=== PATIENT | male | born 1945 | race Caucasian/White ===

== ENCOUNTER 2022-02-05 10:06 | Emergency (ER) | payer MEDICARE, OTHER ==
[2022-02-05] MEDS ORDERED: LORazepam 2 MG/ML SDV IVPUSH ONE (13:44)
[2022-02-05] MEDS ORDERED: Ondansetron 4 MG/2 ML SDV IVPUSH ONE (13:44)
[2022-02-05] MEDS ORDERED: Morphine 2 MG/ML SYRINGE IVPUSH ONE (13:44)
[2022-02-05 14:34] LABS: ANION GAP 9.2 meq/L (7-15)
== END 2022-02-05 17:40 ==
LOC: LL.ED 10:06
DX: S72.001A Fracture of unspecified part of neck of right femur, initial encounter for closed fracture (principal); Z88.8 Allergy status to other drugs, medicaments and biological substances
CPT/HCPCS: 36415; 73700-RT; 80053; 83735; 85025; 96374; 96375; 99283; 99285-25; J2060; J2270; J2405

== ENCOUNTER 2024-02-10 09:08 | Emergency (ER) | payer MEDICARE, OTHER ==
[2024-02-10] MEDS: cefTRIAXone 1 GM in Sodium Chloride 0.9% 100 ML IV ONE (09:38)
[2024-02-10] MEDS: Sodium Chloride 0.9% 1,000 ML IV ONE (09:38)
[2024-02-10 09:54] LABS: BASOPHILS ABSOLUTE AUTO 0.02 K/uL (0.00-0.20); BASOPHILS PERCENT AUTO 0.1 % (0.0-2.0); EOSINOPHILS ABSOLUTE AUTO 0.01 K/uL (0.00-0.50); EOSINOPHILS PERCENT AUTO 0.1 % (0.0-5.0); HEMATOCRIT 48.4 % (39.0-49.0); HEMOGLOBIN 16.7 g/dL (13.1-16.8); LYMPHOCYTES ABSOLUTE AUTO 1.74 K/uL (0.50-3.50); LYMPHOCYTES PERCENT AUTO 12.9 % (10.0-50.0); MEAN CORPUSCULAR HEMOGLOBIN 31.3 pg (28.2-33.3); MEAN CORPUSCULAR HGB CONC 34.5 g/dL (31.7-36.0); MEAN CORPUSCULAR VOLUME 90.6 fL (84.0-98.0); MONOCYTES ABSOLUTE AUTO 1.53 K/uL (0.00-1.00); MONOCYTES PERCENT AUTO 11.3 % (2.0-14.0); NEUTROPHILS ABSOLUTE AUTO 10.22 K/uL (1.40-7.00); NEUTROPHILS PERCENT AUTO 75.6 % (45.0-80.0); PLATELET COUNT,PLT 181 K/uL (150-350); RED BLOOD CELL COUNT 5.34 M/uL (4.33-5.41); RED CELL DISTRIBUTION WIDTH 14.8 % (11.2-14.1); WHITE BLOOD CELL COUNT,WBC 13.5 K/uL (4.0-10.2)
[2024-02-10 10:17] LABS: ALBUMIN 3.9 g/dL (3.4-5.0); ANION GAP 12.6 meq/L (7-15); BILIRUBIN TOTAL 2.7 mg/dL (0.2-1.0); CALCIUM 9.6 mg/dL (8.5-10.1); CARBON DIOXIDE,CO2 24.4 mmol/L (21.0-32.0); CREATININE 1.36 mg/dL (0.51-1.17); EST CRCL DRUG DOSING (CG) 39.09 mL/min; MAGNESIUM 2.2 mg/dL (1.8-2.4); PROTEIN TOTAL,TP 8.2 g/dL (6.4-8.2)
[2024-02-10 10:18] LABS: APPEARANCE,URINE SLIGHTLY CLOUDY; BILIRUBIN,URINE MODERATE (NEGATIVE); COLOR,URINE DARK YELLOW; GLUCOSE,URINE NEGATIVE (NEGATIVE); KETONES,URINE 15 mg/dL (NEGATIVE); LEUKOCYTE ESTERASE,URINE NEGATIVE (NEGATIVE); NITRITE,URINE NEGATIVE (NEGATIVE); OCCULT BLOOD,URINE NEGATIVE (NEGATIVE); PROTEIN,URINE 30 mg/dL (NEGATIVE); UROBILINOGEN,URINE >=8.0 E.U./dL (0.2-1.0)
[2024-02-10] MEDS: Lidocaine 2% HCl 11 ML Jelly Filled Syringe TOP ONE (10:22)
[2024-02-10] MEDS: Lidocaine 2% HCl 11 ML Jelly Filled Syringe ONE (10:22)
[2024-02-10 10:38] LABS: BACTERIA,URINE FEW /HPF (NONE TO FEW); EPITHELIAL CELLS,URINE FEW /LPF; RBC,URINE 0-5 /HPF
[2024-02-10 10:39] LABS: MUCUS,URINE MODERATE /LPF (NEGATIVE)
[2024-02-10] MEDS: Iopamidol 612 MG/ML 100 ML Bottle IVPUSH STA (11:25)
[2024-02-10] MEDS: Sodium Chloride 0.9% 1,000 ML IV SCH (11:55)
[2024-02-10] MEDS: Losartan 25 MG Tab PO ONE (14:21)
[2024-02-10] MEDS: Labetalol 20 MG/4 ML Syringe IVPUSH ONE (14:22)
[2024-02-10] MEDS: Sodium Chloride 0.9% 10 ML Syringe FLUSH PRN (14:22)
== END 2024-02-10 15:20 ==
LOC: LL.ED 09:08
DX: R11.10 Vomiting, unspecified (principal); E86.0 Dehydration; Z79.899 Other long term (current) drug therapy; Z79.890 Hormone replacement therapy; Z88.8 Allergy status to other drugs, medicaments and biological substances; F03.90 Unspecified dementia, unspecified severity, without behavioral disturbance, psychotic disturbance, mood disturbance, and anxiety
CPT/HCPCS: 36415; 71045; 71260; 74177; 80053; 81001; 83605; 83735; 83880; 85025; 87040; 87086; 94761; 96361; 96365; 96375; 99284-25; A9270-GY; C1758; J0696; J1920; J3490; J7030; Q9967; U0002

== ENCOUNTER 2024-02-12 10:25 | Emergency (ER) | payer MEDICARE, OTHER ==
[2024-02-12] MEDS ORDERED: Sodium Chloride 0.9% 10 ML Syringe FLUSH PRN (10:47)
[2024-02-12 11:00] LABS: BASOPHILS ABSOLUTE AUTO 0.01 K/uL (0.00-0.20); BASOPHILS PERCENT AUTO 0.1 % (0.0-2.0); EOSINOPHILS ABSOLUTE AUTO 0.01 K/uL (0.00-0.50); EOSINOPHILS PERCENT AUTO 0.1 % (0.0-5.0); HEMATOCRIT 42.5 % (39.0-49.0); HEMOGLOBIN 14.3 g/dL (13.1-16.8); LYMPHOCYTES ABSOLUTE AUTO 1.41 K/uL (0.50-3.50); LYMPHOCYTES PERCENT AUTO 10.4 % (10.0-50.0); MEAN CORPUSCULAR HEMOGLOBIN 31.3 pg (28.2-33.3); MEAN CORPUSCULAR HGB CONC 33.6 g/dL (31.7-36.0); MONOCYTES ABSOLUTE AUTO 0.91 K/uL (0.00-1.00); MONOCYTES PERCENT AUTO 6.7 % (2.0-14.0); NEUTROPHILS ABSOLUTE AUTO 11.24 K/uL (1.40-7.00); NEUTROPHILS PERCENT AUTO 82.7 % (45.0-80.0); PLATELET COUNT,PLT 147 K/uL (150-350); RED BLOOD CELL COUNT 4.57 M/uL (4.33-5.41); RED CELL DISTRIBUTION WIDTH 15.3 % (11.2-14.1); WHITE BLOOD CELL COUNT,WBC 13.6 K/uL (4.0-10.2)
[2024-02-12] MEDS: Lactated Ringers 1,000 ML IV SCH (11:01)
[2024-02-12 11:27] LABS: LACTIC ACID 2.1 mmol/L (0.4-2.0)
[2024-02-12 11:28] LABS: ALANINE AMINOTRANSFERASE,ALT 95 U/L (12-78); ALKALINE PHOSPHATASE 59 IU/L (46-116); ANION GAP 12.1 meq/L (7-15); ASPARTATE AMNIOTRANSFERASE,AST 79 U/L (15-37); BILIRUBIN TOTAL 2.2 mg/dL (0.2-1.0); BLOOD UREA NITROGEN,BUN 23 mg/dL (7-18); CALCIUM 9.2 mg/dL (8.5-10.1); CARBON DIOXIDE,CO2 22.9 mmol/L (21.0-32.0); CHLORIDE,CL 106 mmol/L (98-107); CREATININE 1.27 mg/dL (0.51-1.17); GLUCOSE RANDOM 166 mg/dL (70-99); POTASSIUM,K 3.5 mmol/L (3.5-5.1); PRO B-TYPE NATRIUR PEPT,BNPPRO 654 pg/mL (0-125); PROTEIN TOTAL,TP 7.6 g/dL (6.4-8.2); SODIUM,NA 141 mmol/L (136-145)
[2024-02-12 11:29] LABS: ESTIMATED GFR 57 mL/min (>=60)
[2024-02-12 12:06] LABS: C-REACTIVE PROTEIN > 25.00 mg/dL (0.05-0.30)
[2024-02-12] MEDS: Piperacillin/Tazobactam 4.5 GM in Sodium Chloride 0.9% 100 ML IV SCH (14:10)
== END 2024-02-12 15:40 ==
LOC: LL.ED 10:25
DX: J18.9 Pneumonia, unspecified organism (principal); E86.0 Dehydration; I12.9 Hypertensive chronic kidney disease with stage 1 through stage 4 chronic kidney disease, or unspecified chronic kidney disease; N18.9 Chronic kidney disease, unspecified; F32.A Depression, unspecified; F03.90 Unspecified dementia, unspecified severity, without behavioral disturbance, psychotic disturbance, mood disturbance, and anxiety; F41.9 Anxiety disorder, unspecified; K59.00 Constipation, unspecified; E78.00 Pure hypercholesterolemia, unspecified; E03.9 Hypothyroidism, unspecified; Z88.6 Allergy status to analgesic agent; Z79.899 Other long term (current) drug therapy; Z79.890 Hormone replacement therapy
CPT/HCPCS: 36415; 71046; 80053; 83605; 83880; 85025; 86140; 87040; 94761; 96361; 96365; 99285-25; J2543; J3490; J7120